=== PATIENT | female | born 1995 | race Caucasian/White ===

== ENCOUNTER 2017-08-07 15:24 | Emergency (ER) | payer OTHER ==
[2017-08-07 15:37] VITALS: BP 121/78
[2017-08-07] MEDS ORDERED: Ibuprofen TAB* 600 MG PO ONE ×2 (15:56)
[2017-08-07] MEDS ORDERED: Amoxicillin PO (*) 500 MG CAP PO ONE ×2 (15:56)
--- NOTE | 2017-08-07 15:56 | UC ---
UC Dental HPI - HPI Summary HPI Summary: Awoke with swelling in right upper jaw--has many teeth that are in poor repair - History of Current Complaint Chief Complaint: UCDentalProblem Stated Complaint: DENTAL COMPLAINT Time Seen by Provider: 08/07/17 15:51 Hx Obtained From: Patient Hx Last Menstrual Period: now ?: No Onset/Duration: Sudden Onset, Lasting Days - 1, Still Present Severity: Moderate Aggravating Factor(s): Nothing Alleviating Factor(s): Nothing Related History: Previous Dental Care on Same Tooth, Swelling - Allergies/Home Medications Allergies/Adverse Reactions: Allergies Allergy/AdvReac Type Severity Reaction Status Date / Time No Known Allergies Allergy Verified 08/07/17 15:35 PMH/Surg Hx/FS Hx/Imm Hx Previously Healthy: Yes - Surgical History Surgical History: None - Family History Known Family History: Positive: None - Social History Occupation: Employed Full-time Lives: With Family Alcohol Use: None Substance Use Type: None Smoking Status (MU): Heavy Every Day Tobacco Smoker Type: Cigarettes Amount Used/How Often: 1/2 PPD Length of Time of Smoking/Using Tobacco: 2+ years Have You Smoked in the Last Year: Yes Review of Systems Constitutional: Negative Skin: Negative Eyes: Negative ENT: Dental Pain Respiratory: Negative Cardiovascular: Negative Gastrointestinal: Negative Genitourinary: Negative Motor: Negative Neurovascular: Negative Musculoskeletal: Negative Neurological: Negative Psychological: Negative Is Patient Immunocompromised?: No All Other Systems Reviewed And Are Negative: Yes Physical Exam Triage Information Reviewed: Yes Appearance: Well-Appearing, Well-Nourished, Pain Distress Vital Signs: Initial Vital Signs Temp 98.9 F 08/07/17 15:33 Pulse 100 08/07/17 15:33 Resp 18 08/07/17 15:33 BP 121/78 08/07/17 15:33 Pulse Ox 100 08/07/17 15:33 Vital Signs Reviewed: Yes Eye Exam: Normal Eyes: Positive: Conjunctiva Clear ENT Exam: Normal ENT: Positive: Normal ENT inspection, Hearing grossly normal, Pharynx normal. Negative: Nasal congestion, TMs normal Dental Exam: Normal Dental: Positive: Percussion Tenderness @ - multiple teeth right upper jaw, Gross Decay/Caries @, Abscess @ Neck exam: Normal Neck: Positive: Supple, Nontender, No Lymphadenopathy Respiratory Exam: Normal Respiratory: Positive: Chest non-tender, Lungs clear, Normal breath sounds, No respiratory distress, No accessory muscle use Cardiovascular Exam: Normal Cardiovascular: Positive: RRR, Pulses Normal, Brisk Capillary Refill Musculoskeletal Exam: Normal Musculoskeletal: Positive: Strength Intact, ROM Intact, No Edema Neurological Exam: Normal Neurological: Positive: Alert, Muscle Tone Normal Psychological Exam: Normal Skin Exam: Normal Dental Complaint Course/Dx - Course Course Of Treatment: amoxicillin, ibuprofen topital pain medications soft foods follow with dentist on wednesday as planned - Differential Dx/Diagnosis Provider Diagnoses: Dental abscess right upper jaw Discharge - Discharge Plan Condition: Stable Disposition: HOME Prescriptions: Amoxicillin PO (*) [Amoxicillin 500 MG CAP*] 500 mg PO TID #28 cap Ibuprofen TAB* [Motrin TAB* 600 MG] 600 mg PO Q6H PRN #40 tab PRN Reason: pain/swelling Patient Education Materials: Dental Abscess (ED), Toothache (ED) Referrals: Danny Leung [Primary Care Provider] - Additional Instructions: Follow up with dental provider in [place] on Wednesday as planned
== END 2017-08-07 16:17 | disposition home or self-care (01) ==
LOC: UCEAST 15:24
DX: K04.7 Periapical abscess without sinus (principal); F17.210 Nicotine dependence, cigarettes, uncomplicated
CPT/HCPCS: 99213; A9270-GY; G0463

== ENCOUNTER 2018-03-14 17:26 | Emergency (ER) | payer OTHER ==
[2018-03-14 18:02] VITALS: BP 131/77
--- NOTE | 2018-03-14 18:45 | UC ---
Skin Complaint HPI - HPI Summary HPI Summary: Patient presents with a rash on the left side of her neck. Patient states expender Mark 5 days. Patient states it's very pruritic. 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 Patient without fevers or chills. No lesions elsewhere. No others with lesions. Patient has not taken anything for itching. No discomfort. No drainage. Patient with current menses. Patient's medications reviewed this visit. - History of Current Complaint Chief Complaint: UCSkin Time Seen by Provider: 03/14/18 18:28 Stated Complaint: RASH ON NECK Hx Obtained From: Patient Hx Last Menstrual Period: 03/09/18 ?: No Pain Intensity: 0 - Allergy/Home Medications Allergies/Adverse Reactions: Allergies Allergy/AdvReac Type Severity Reaction Status Date / Time No Known Allergies Allergy Verified 03/14/18 17:55 Home Medications: Home Medications Ibuprofen TAB* [Advil TAB*] 200 mg PO Q6H PRN 03/14/18 [History Confirmed ] Review of Systems Constitutional: Negative Skin: Rash All Other Systems Reviewed And Are Negative: Yes PMH/Surg Hx/FS Hx/Imm Hx Previously Healthy: Yes - Surgical History Surgical History: None - Family History Known Family History: Positive: None Family History: NON CONTRIBUTORY - Social History Occupation: Works From/At Home Lives: With Family Alcohol Use: None Substance Use Type: None Smoking Status (MU): Heavy Every Day Tobacco Smoker Type: Cigarettes Amount Used/How Often: 1/2 PPD Length of Time of Smoking/Using Tobacco: 2+ years Have You Smoked in the Last Year: Yes Physical Exam - Summary Physical Exam Summary: Vital Signs Reviewed: Yes A+Ox3, no distress Eyes: Conjunctiva Clear, LEILANI. EOM intact and full ENT: Hearing grossly normal TM x 2 clear, mmoist, uvula midline, no exudate, no erythema Neck: Positive: Supple Respiratory: Positive: No respiratory distress, No accessory muscle use + CTA throughout no w/r Cardiovascular: RRR nl s1, s2 no m/r CBT <2 sec abd soft + BS nt/nd no guarding, no distension Musculoskeletal Exam: SCRUGGS x 4 without difficulty Strength Intact, ROM Intact Neurological: Positive: Alert, + sensation throughout Psychological: Positive: Normal Response To Family Skin: Positive: no ecchymosis, pt with 3cm, linear rash left side of neck. No erythema, no drainage - appears contact dermatitis. small pustules. no lesions in hair, ear Triage Information Reviewed: Yes Vital Signs: Initial Vital Signs Temp 98.3 F 03/14/18 17:56 Pulse 80 03/14/18 17:56 Resp 16 03/14/18 17:56 BP 131/77 03/14/18 17:56 Pulse Ox 99 03/14/18 17:56 Course/Dx - Course Course Of Treatment: Pt with localized linear rash on left side of neck. Patient reports pruritic in nature. Patient well-appearing. Rash appears with a contact dermatitis. Patient states she was out in the [place]. We'll prescribe a Medrol Dosepak. Recommend hydrocortisone cream as well as over-the- counter Benadryl. Cool soaks. Avoid heat. Return precautions discussed. Patient comfortable in agreement with plan. - Diagnoses Provider Diagnoses: Contact dermatitis Discharge - Sign-Out/Discharge Documenting (check all that apply): Patient Departure - Discharge Plan Condition: Stable Disposition: HOME Prescriptions: Hydrocortisone 1% Oint(NF) [Hydrocortisone 1% Oint (NF)] 1 applic .SEE ORDER BID PRN #1 applic PRN Reason: Itching methylPREDNISolone [Medrol Dosepak 4 MG*] 4 mg PO .SEE SHANNA INSTRUCTION #1 tab Patient Education Materials: Contact Dermatitis (ED) Referrals: [facility] [place] [facility] [Outside] No Primary Care Phys,NOPCP [Primary Care Provider] - Additional Instructions: - Take prednisone daily as prescribed until gone - Okay to apply hydrocortisone cream to the areas that are itchy - Okay to apply [id number] Benadryl cream to areas that are itchy. This will not cause sleepiness - Avoid getting overheated. Hot outside, hot showers we'll make itching worse. apply cool soaks to help with itching - You have been given contact information for physician referral center. This office consistent finding primary care provider if he develops any trouble swallowing or swelling inside her mouth you should be rechecked immediately. - Billing Disposition and Condition Condition: STABLE Disposition: Home
== END 2018-03-14 18:57 | disposition home or self-care (01) ==
LOC: UCCORT 17:26
DX: L25.9 Unspecified contact dermatitis, unspecified cause (principal); F17.210 Nicotine dependence, cigarettes, uncomplicated
CPT/HCPCS: 99212; G0463

== ENCOUNTER 2018-04-09 12:41 | Emergency (ER) | payer OTHER ==
[2018-04-09 13:01] VITALS: BP 121/67
--- NOTE | 2018-06-08 11:57 | UC ---
Upper Extremity HPI - HPI Summary HPI Summary: Vonda has had wrist pain for 24 hours, unknown WILMAR, no trauma, there is no swelling or ddeformity - History of Current Complaint Chief Complaint: UCUpperExtremity Stated Complaint: L WRIST PAIN Time Seen by Provider: 04/09/18 12:56 Hx Obtained From: Patient Hx Last Menstrual Period: 04/04/18 Onset/Duration: Sudden Onset, Lasting Days - 1 Severity Initially: Mild Severity Currently: Mild Pain Intensity: 0 Pain Scale Used: 0-10 Numeric Aggravating Factor(s): Movement Alleviating Factor(s): Nothing Associated Signs And Symptoms: Positive: Negative - Allergies/Home Medications Allergies/Adverse Reactions: Allergies Allergy/AdvReac Type Severity Reaction Status Date / Time No Known Allergies Allergy Verified 04/09/18 13:01 PMH/Surg Hx/FS Hx/Imm Hx Previously Healthy: Yes - Surgical History Surgical History: None - Family History Known Family History: Positive: None Negative: Cardiac Disease, Hypertension Family History: NON CONTRIBUTORY - Social History Alcohol Use: None Substance Use Type: None Smoking Status (MU): Light Every Day Tobacco Smoker Type: Cigarettes Amount Used/How Often: 1/2 PPD Length of Time of Smoking/Using Tobacco: 2+ years Have You Smoked in the Last Year: Yes Review of Systems Constitutional: Negative Skin: Negative Eyes: Negative ENT: Negative Respiratory: Negative Cardiovascular: Negative Gastrointestinal: Negative Genitourinary: Negative Motor: Negative Neurovascular: Negative Musculoskeletal: Arthralgia, Myalgia Neurological: Negative Psychological: Negative Is Patient Immunocompromised?: No All Other Systems Reviewed And Are Negative: Yes Physical Exam Triage Information Reviewed: Yes Appearance: Well-Appearing, Well-Nourished, Pain Distress Vital Signs: Initial Vital Signs Temp 98.2 F 04/09/18 12:58 Pulse 74 04/09/18 12:58 Resp 18 04/09/18 12:58 BP 121/67 04/09/18 12:58 Pulse Ox 100 04/09/18 12:58 Vital Signs Reviewed: Yes Eye Exam: Normal ENT Exam: Normal Dental Exam: Normal Neck exam: Normal Respiratory Exam: Normal Cardiovascular Exam: Normal Abdominal Exam: Normal Musculoskeletal: Positive: Strength Intact, ROM Intact, No Edema, Other: - pain with movement Neurological Exam: Normal Psychological Exam: Normal Upper Extremity Course/Dx - Course Course Of Treatment: hx obtained, exam performed ,meds reviewed, brace applied - Differential Dx/Diagnosis Differential Diagnosis/HQI/PQRI: Contusion, Strain, Sprain Provider Diagnoses: wrist pain Discharge - Sign-Out/Discharge Documenting (check all that apply): Patient Departure All imaging exams completed and their final reports reviewed: Yes - Discharge Plan Condition: Stable Disposition: HOME Patient Education Materials: Wrist Sprain (ED) Referrals: No Primary Care Phys,NOPCP [Primary Care Provider] - Additional Instructions: continue to compress and use the brace as needed. - Billing Disposition and Condition Condition: STABLE Disposition: Home
== END 2018-04-09 13:54 | disposition home or self-care (01) ==
LOC: UCEAST 12:41
DX: M25.532 Pain in left wrist (principal); F17.210 Nicotine dependence, cigarettes, uncomplicated
CPT/HCPCS: 99212; G0463

== ENCOUNTER 2019-07-24 10:48 | Emergency (ER) | payer OTHER ==
[2019-07-24 11:07] VITALS: BP 139/88
[2019-07-24] MEDS ORDERED: Tetan/Diph/Pertus SYR(Tdap)* 0.5 ML SYR(BOOSTRIX) use SYR contains LATEX IM ONE (11:25)
--- NOTE | 2019-07-24 11:46 | UC ---
Bite Injury/Animal HPI - HPI Summary HPI Summary: 23-year-old female presents with concerns for an infected cat bite of the left ring finger. States she was helping an elderly neighbor 2 weeks ago to move and she was attempting to place the cat in the carrier when it became spooked and bit her on the finger. Finger became red and swollen the next day. She has been trying to keep the wound clean and treat with a topical antibiotic but has had no improvement in symptoms. States she is unable to fully flex or extend the finger. Unknown tetanus status. Denies fever, chills, drainage, numbness or tingling. - History of Current Complaint Chief Complaint: UCBiteInjury Stated Complaint: cat bite Time Seen by Provider: 07/24/19 11:15 Hx Obtained From: Patient Hx Last Menstrual Period: 06/20/19 Pain Intensity: 2 - Allergies/Home Medications Allergies/Adverse Reactions: Allergies Allergy/AdvReac Type Severity Reaction Status Date / Time No Known Allergies Allergy Verified 07/24/19 11:07 PMH/Surg Hx/FS Hx/Imm Hx Previously Healthy: Yes - Denies significant PMH - Surgical History Surgical History: None - Family History Known Family History: Positive: Non-Contributory Family History: NON CONTRIBUTORY - Social History Occupation: Works From/At Home Lives: With Family Alcohol Use: None Substance Use Type: None Smoking Status (MU): Light Every Day Tobacco Smoker Type: Cigarettes Amount Used/How Often: 1/2 PPD Length of Time of Smoking/Using Tobacco: 2+ years Have You Smoked in the Last Year: Yes Review of Systems All Other Systems Reviewed And Are Negative: Yes Constitutional: Negative: Fever, Chills Skin: Positive: Other - See HPI Respiratory: Positive: Negative Cardiovascular: Positive: Negative Gastrointestinal: Positive: Negative Genitourinary: Positive: Negative Motor: Negative: Weakness Neurovascular: Negative: Decreased Sensation Musculoskeletal: Positive: Decreased ROM, Other: - See HPI Neurological: Positive: Negative Is Patient Immunocompromised?: No Physical Exam - Summary Physical Exam Summary: GENERAL APPEARANCE: Well developed, well nourished, alert and cooperative, and appears to be in no acute distress. CARDIAC: Normal S1 and S2. No S3, S4 or murmurs. Rhythm is regular. There is no peripheral edema, cyanosis or pallor. Extremities are warm and well perfused. Capillary refill is less than 2 seconds. Peripheral pulses intact. LUNGS: Clear to auscultation without rales, rhonchi, wheezing or diminished breath sounds. ABDOMEN: Positive bowel sounds. Soft, nondistended, nontender. No guarding or rebound. No masses or hepatosplenomegally. MUSKULOSKELETAL: Normal muscular development. Normal gait. EXTREMITIES: Puncture wound to the dorsal aspect of the left middle finger just distal to the PIP joint without drainage. Moderate erythema and edema of the proximal finger. Finger is in flexed position at rest. Flexion and extension moderately decreased. Circulation and sensation intact. SKIN: Skin normal color, texture and turgor. Triage Information Reviewed: Yes Vital Signs: Initial Vital Signs Temp 98 F 07/24/19 11:04 Pulse 74 07/24/19 11:04 Resp 16 07/24/19 11:04 BP 139/88 07/24/19 11:04 Pulse Ox 100 07/24/19 11:04 Vital Signs Reviewed: Yes Images Hands: 1 - Puncture wound without drainage 2 - Erythema and moderate edema Diagnostics - Radiology No standard instances Radiology Interpretation Completed By: Radiologist Summary of Radiographic Findings: Order Information: FINGER LEFT RING. Indication: Left ring finger injury. 3 views of the left ring finger demonstrates flexion deformity at the proximal interphalangeal joint. No obvious fracture is noted. IMPRESSION: Flexion deformity with soft tissue swelling at the proximal interphalangeal joint of the left ring finger. Bite Injury Course/Dx - Course Course Of Treatment: 23-year-old female presents with concerns for an infected cat bite of the left ring finger. States she was helping an elderly neighbor 2 weeks ago to move and she was attempting to place the cat in the carrier when it became spooked and bit her on the finger. Finger became red and swollen the next day. She has been trying to keep the wound clean and treat with a topical antibiotic but has had no improvement in symptoms. States she is unable to fully flex or extend the finger. Unknown tetanus status. Denies fever, chills, drainage, numbness or tingling. Afebrile. Vital signs stable. On exam patient was noted to have a puncture wound to the dorsal aspect of the left middle finger just distal to the PIP joint without drainage. Moderate erythema and edema of the proximal finger. Finger is in flexed position at rest. Flexion and extension moderately decreased. Circulation and sensation intact. X-ray showed flexion deformity with soft tissue swelling at the proximal interphalangeal joint of the left ring finger without evidence of a foreign body or fracture. Reviewed results with the patient. She was placed in a finger splint by the RN. Tetanus was updated. We will start her on Augmentin 875 mg twice a day 7 days to treat for a soft tissue infection of the finger. She is to follow-up with hand surgery in 3-5 days for recheck of symptoms. Anticipatory guidance and warning symptoms reviewed with the patient. Verbalizes understanding and agrees with plan of care. - Differential Dx/Diagnosis Differential Diagnosis/HQI/PQRI: Joint Space Infection, Puncture, Rabies Exposure, Superficial Infection, Deep Space Infection Provider Diagnosis: Cat bite of left hand including fingers with infection Discharge ED - Sign-Out/Discharge Documenting (check all that apply): Patient Departure All imaging exams completed and their final reports reviewed: Yes - Discharge Plan Condition: Stable Disposition: HOME Prescriptions: Amoxicillin/Clavulanate TAB* [Augmentin TAB 875*] 875 mg PO BID #14 tab Patient Education Materials: Animal Bite (ED) Referrals: No Primary Care Phys,NOPCP [Primary Care Provider] - Michael Haider MD [Medical Doctor] - 3 Days (Follow up in 3-5 days for recheck of symptoms. Call for appointment. ) Additional Instructions: The x-ray showed a flexion injury of the finger likely due to the finger swelling. There was no evidence of a foreign body or infection of the bone. You appear to have an infection of the soft tissues of the finger. We will start you on an antibiotic to treat for the infection. Start Augmentin 875 mg 1 tablet twice daily for 7 days. Take with food to avoid upset stomach. Be sure to complete the entire course even if feeling better. Continue to keep the wounds clean with a mild soap and water. You may apply a small amount of antibiotic to the puncture wound(s) and cover with a bandage. This should be changed at least once daily for any time the bandage becomes wet or soiled. Your tetanus was updated today. Be sure to notify your primary care provider so they may update your records. Follow-up with orthopedic surgery in 3-5 days for recheck of symptoms. You'll need to call and schedule an appointment. Seek immediate medical attention in the emergency room if you develop a fever greater than 100.5 F, have redness that continues to rapidly spread, red streaking up the arm, worsening swelling of the finger, he developed any numbness or tingling in the finger, or have any worsening of symptoms. - Billing Disposition and Condition Condition: STABLE Disposition: Home
== END 2019-07-24 12:22 | disposition home or self-care (01) ==
LOC: UCEAST 10:48
DX: S61.255A Open bite of left ring finger without damage to nail, initial encounter (principal); F17.210 Nicotine dependence, cigarettes, uncomplicated; L08.9 Local infection of the skin and subcutaneous tissue, unspecified; W55.01XA Bitten by cat, initial encounter; Y92.9 Unspecified place or not applicable
CPT/HCPCS: 73140; 90471; 90715; 99213; G0463